=== PATIENT | female | born 1995 | race African-American/Black ===

== ENCOUNTER 2018-03-03 14:39 | Outpatient (CLI) | payer MEDICAID ==
[2018-03-03 15:11] LABS: APPEARANCE,URINE SLIGHTLY-CLOUDY; BILIRUBIN,URINE NEGATIVE (NEGATIVE); COLOR,URINE YELLOW; GLUCOSE, URINE NEGATIVE (NEGATIVE); KETONES,URINE NEGATIVE (NEGATIVE); LEUKOCYTE ESTERASE,URINE MODERATE (NEGATIVE); NITRITE,URINE NEGATIVE (NEGATIVE); PROTEIN,URINE NEGATIVE (NEGATIVE); URINE SPECIFIC GRAVITY 1.027
[2018-03-03 15:13] LABS: ABSOLUTE EOSINOPHILS # (AUTO) 0.1 10^3/uL (0.0-0.6); ABSOLUTE LYMPHOCYTES (AUTO) 1.5 10^3/uL (0.5-4.7); ABSOLUTE MONOCYTES (AUTO) 0.8 10^3/uL (0.1-1.4); ABSOLUTE NEUT (AUTO) 8.1 10^3/uL (1.7-8.2); BASOPHILS % (AUTO) 0.5 % (0-2); EOSINOPHILS % (AUTO) 0.9 % (0-6); HEMATOCRIT 38.7 % (36.0-47.0); HEMOGLOBIN 12.9 g/dL (12.0-15.5); LYMPHOCYTES % (AUTO) 14.1 % (13-45); MEAN CORPUSCULAR HEMOGLOBIN 30.6 pg (27.0-33.4); MEAN CORPUSCULAR HGB CONC 33.3 g/dL (32.0-36.0); MEAN CORPUSCULAR VOLUME 92 fl (80-97); PLATELET COUNT 211 10^3/uL (150-450); RED BLOOD COUNT 4.22 10^6/uL (3.72-5.28); RED CELL DISTRIBUTION WIDTH 14.5 % (11.5-14.0); SEGMENTED NEUTROPHILS % (AUTO) 76.5 % (42-78); TOTAL CELLS COUNTED % (AUTO) 100 %; WHITE BLOOD COUNT 10.5 10^3/uL (4.0-10.5)
[2018-03-03 15:33] LABS: ALANINE AMINOTRANSFERASE 20 U/L (9-52); ALBUMIN 3.6 g/dL (3.5-5.0); ALKALINE PHOSPHATASE 177 U/L (38-126); ANION GAP 10 (5-19); ASPARTATE AMINO TRANSFERASE 18 U/L (14-36); BILIRUBIN,DIRECT 0.1 mg/dL (0.0-0.4); BILIRUBIN,TOTAL 0.9 mg/dL (0.2-1.3); BLOOD UREA NITROGEN 8 mg/dL (7-20); CARBON DIOXIDE 24 mmol/L (22-30); CHLORIDE 106 mmol/L (98-107); GLUCOSE 73 mg/dL (75-110); LDH 361 U/L (313-618); SODIUM 139.5 mmol/L (137-145); TOTAL PROTEIN 6.7 g/dL (6.3-8.2)
[2018-03-03 15:47] LABS: URINE CREATININE 184.7 mg/dL (16-327); URINE PROTEIN 5.9 mg/dL (<12)
[2018-03-03 15:49] LABS: URINE AMPHETAMINES SCREEN NEGATIVE; URINE BARBITURATES SCREEN NEGATIVE; URINE BENZODIAZEPINES SCREEN NEGATIVE; URINE COCAINE SCREEN NEGATIVE; URINE MARIJUANA (THC) SCREEN NEGATIVE; URINE METHADONE SCREEN NEGATIVE; URINE PHENCYCLIDINE SCREEN NEGATIVE
--- NOTE | 2018-03-03 15:53 | Non Stress Test Report ---
Non Stress Test Datetime Report Generated by CPN: 03/03/2018 15:53 INDICATION Indication for Study: Ordered by Provider Indication for Study (NST) Other: Labor Check MONITORING Monitor Explained: Monitor Explained; Test Explained; Patient Verbalized Understanding Time on Monitor: 03/03/2018 14:55 Time off Monitor: 03/03/2018 15:37 NST Duration: 42 NST INTERVENTIONS NST Interventions: PO Hydration BABY A: [id number] BABY A Movement : Present Contraction Frequency : 8-9 FHR Baseline : 140 Accelerations : 15X15 Decelerations : None Variability : Moderate 6-25bpm NST Review and Verified By : A Chan RN NST Results: Reactive NST REPORT Report Trigger: Send Report
== END 2018-03-03 16:05 | disposition home or self-care (01) ==
LOC: LC 14:39
PROVIDERS: ATTEND Student in an Organized Health Care Education/Training Program
PROC: 4A1HXCZ Monitoring of Products of Conception, Cardiac Rate, External Approach (ICD-10-PCS; principal; 2018-03-03)
DX: O13.3 Gestational [pregnancy-induced] hypertension without significant proteinuria, third trimester (principal); Z3A.40 40 weeks gestation of pregnancy
CPT/HCPCS: 36415; 59025; 80053; 80307; 81001; 82570; 83615; 84156; 84550; 85025

== ENCOUNTER 2018-03-04 09:39 | Inpatient (IN) | payer MEDICAID ==
[2018-03-04] MEDS ORDERED: RINGERS SOLUTION,LACTATED 1,000 ML IV ONE (10:32)
[2018-03-04] MEDS ORDERED: PENICILLIN G POTASSIUM 5,000,000 UNIT in DEXTROSE 5%-WATER 100 ML IV ONE (10:32)
[2018-03-04] MEDS ORDERED: PENICILLIN G-K 5 MILLION UNIT VIAL ONE ×2 (10:32→14:15)
--- NOTE | 2018-03-04 10:42 | Admission Physical ---
Datetime Report Generated by CPN: 03/04/2018 10:42 CURRENT ADMISSION Hx Assessment: The History has been Reviewed and is Current Chief Complaint: Uterine Contractions Indication for Induction: Not Applicable Admit Impression : Term, Intrauterine ; Active Labor; Intact Membranes Admit Plan: Admit to Unit; Initiate Labor Protocol ALLERGIES Medication Allergies: No Medication Allergies: No Known Allergies (03/03/2018) Latex: No Latex Allergies Food Allergies: Seafood Environmental Allergies: N/A OBSTETRICAL HISTORY EDC: 03/01/2018 00:00 : 2 Para: 1 Term: 0 : 1 SAB: 0 IAB: 0 Ectopic: 0 Livin Cesareans: 0 VBACs: 0 Multiple Births: 0 Gestational Diabetes: No Rh Sensitization: No Incompetent Cervix: No FREEDOM: No Infertility: No ART Treatment: No Uterine Anomaly: No IUGR: No Hx Previous C/S: No Macrosomia: No Hx Loss/Stillborn: No PIH: No Hx : No Placenta Previa/Abruption: No Depression/PP Depression: Yes PTL/PROM: No Post Hemorrhage: No Current Procedures: Ultrasound; NST Obstetrical History Comments: G1 - Depression G2 - current SEE RECORDS Alcohol: No Marijuana : No Cocaine: No Other Illicit Drugs: No Cigarettes: Never Smoker. [id number] MEDICAL HISTORY Diabetes: No Blood Transfusion: No Pulmonary Disease (Asthma, TB): Yes Breast Disease: No Hypertension: No Exit Booth Agent Surgery: No Heart Disease: No Hosp/Surgery: No Autoimmune Disorder: No Anesthetic Complications: No Kidney Disease: No Abnormal Pap Smear: No Neuro/Epilepsy: No Psychiatric Disorders: No Other Medical Diseases: No Hepatitis/Liver Disease: No Significant Family History: No Varicosities/Phlebitis: No Trauma/Violence : No Thyroid Dysfunction: No Medical History Comments: Asthma hx per health department records INFECTIOUS HISTORY Gonorrhea: No Genital Herpes: No Chlamydia: No Tuberculosis: No Syphilis: No Hepatitis: No HIV/AIDS Exposure: No Rash or Viral Illness: No HPV: No PHYSICAL EXAM General: Normal HEENT: Normal Neurologic: Normal Thyroid: Deferred Heart: Normal Lungs: Normal Breast: Normal Back: Normal Abdomen: Normal Genitourinary Exam: Normal Extremities: Normal DTRs: Normal Pelvic Type: Adequate Physical Exam Comments: pelvis proven 5 lbs 5 oz, efw: 7lbs 10z on 03/03/18 Vital Signs: Reviewed VAGINAL EXAM Dilatation: 3 Contraction Comments: 2-3 MEMBRANES Membranes: Intact FETUS A EGA: 40.3 Monitoring: External US FHR- Baseline: 135 Variability: Moderate 6-25bpm Accelerations: 15X15 Decelerations: None FHR Category: Category I Presentation: Vertex Admit Comment: Active labor @ 40. 3 GBS +, pcn may have epidural prn first prengancy complicated by @ 32 weeks. Denies complications during this NKDA PLANS FOR LABOR AND DELIVERY Labor and Delivery: None Pain Management: Natural Feeding Preference: Breast Circumcision: Yes INFORMED CONSENT Assignment: Jose A Austin MD Signature: with User ID: [email or web address] : with User ID: [email or web address]
[2018-03-04 10:46] LABS: ABSOLUTE BASOPHILS # (AUTO) 0.1 10^3/uL (0.0-0.2); ABSOLUTE EOSINOPHILS # (AUTO) 0.1 10^3/uL (0.0-0.6); ABSOLUTE LYMPHOCYTES (AUTO) 1.6 10^3/uL (0.5-4.7); ABSOLUTE MONOCYTES (AUTO) 0.9 10^3/uL (0.1-1.4); ABSOLUTE NEUT (AUTO) 9.8 10^3/uL (1.7-8.2); BASOPHILS % (AUTO) 0.5 % (0-2); EOSINOPHILS % (AUTO) 1.1 % (0-6); HEMOGLOBIN 12.9 g/dL (12.0-15.5); LYMPHOCYTES % (AUTO) 12.8 % (13-45); MEAN CORPUSCULAR VOLUME 91 fl (80-97); MONOCYTES % (AUTO) 7.5 % (3-13); PLATELET COUNT 209 10^3/uL (150-450); RED BLOOD COUNT 4.17 10^6/uL (3.72-5.28); SEGMENTED NEUTROPHILS % (AUTO) 78.1 % (42-78); TOTAL CELLS COUNTED % (AUTO) 100 %; WHITE BLOOD COUNT 12.5 10^3/uL (4.0-10.5)
[2018-03-04 11:01] LABS: URINE AMPHETAMINES SCREEN NEGATIVE; URINE BARBITURATES SCREEN NEGATIVE; URINE BENZODIAZEPINES SCREEN NEGATIVE; URINE COCAINE SCREEN NEGATIVE; URINE MARIJUANA (THC) SCREEN NEGATIVE; URINE METHADONE SCREEN NEGATIVE; URINE PHENCYCLIDINE SCREEN NEGATIVE
[2018-03-04 11:11] LABS: APPEARANCE,URINE SLIGHTLY-CLOUDY; BILIRUBIN,URINE NEGATIVE (NEGATIVE); COLOR,URINE YELLOW; GLUCOSE, URINE NEGATIVE (NEGATIVE); KETONES,URINE TRACE mg/dL (NEGATIVE); LEUKOCYTE ESTERASE,URINE SMALL (NEGATIVE); NITRITE,URINE NEGATIVE (NEGATIVE); PROTEIN,URINE NEGATIVE (NEGATIVE); URINE SPECIFIC GRAVITY 1.016
--- NOTE | 2018-03-04 12:44 | L&D Progress Notes ---
PROGRESS NOTES Datetime Report Generated by CPN: 03/04/2018 12:44 PROGRESS NOTE Impression: Normal Progression of Labor Procedures: Sterile Vag Exam Plan: Continue Present Management Informed Consent Obtained: Vaginal Delivery Vital Signs : Reviewed Comment: pt feeling ctx, uncomfortable would like epidural May have epidural Anticpate VAGINAL EXAM Dilatation: 6 Dilatation: 3 Effacement: 90 Station: 0 Contractions: 2-3 Contractions: 2-3 MEMBRANES Membranes: Intact FETUS A FHR - Baseline: 130 Monitoring: External US Variability: Moderate 6-25bpm Accelerations: 15X15 Decelerations: Variable FHR Category: Category II Presentation: Vertex SIGNATURE SIGNATURE: [id number] SIGNATURE: ,[id number];,[id number] SIGNATURE: ,[id number] Assignment: Jose A Austin MD Signature: with User ID: [email or web address] : with User ID: [email or web address]
[2018-03-04] MEDS ORDERED: FENTANYL/BUPIVACAINE/NS/PF 300 MCG/150 ML RTUINJ EPI ONE (12:52)
[2018-03-04] MEDS ORDERED: EPHEDRINE SULFATE INJ 50 MG/1 ML AMPULE ONE (12:52)
[2018-03-04] MEDS ORDERED: BUPIVACAINE HCL 0.25 % INJ/PF (2.5 MG/1 ML) 30 ML VIAL ONE (12:52)
[2018-03-04] MEDS ORDERED: OXYTOCIN/NORMAL SALINE 20 UNIT/1,000 ML RTUINJ ONE (12:53)
[2018-03-04] MEDS ORDERED: LIDOCAINE 1% INJ-PF (10 MG/ML) 30 ML SDV ONE (12:53)
[2018-03-04] MEDS ORDERED: MISOPROSTOL 0.2 MG TABLET ONE (12:53)
[2018-03-04] MEDS ORDERED: PENICILLIN G POTASSIUM 2,500,000 UNIT in DEXTROSE 5%-WATER 50 ML IV SCH (14:33)
[2018-03-04] MEDS ORDERED: MEASLES,MUMPS&RUBELLA VACC/PF 0.5 ML VIAL SUBCUT PRN (15:10)
[2018-03-04] MEDS ORDERED: OXYTOCIN/NORMAL SALINE 20 UNIT/1,000 ML RTUINJ IV PRN (15:10)
[2018-03-04] MEDS ORDERED: ZOLPIDEM TARTRATE 5 MG TABLET PO PRN (15:10)
[2018-03-04] MEDS ORDERED: ACETAMINOPHEN WITH CODEINE #3 TABLET PO PRN ×2 (15:10)
[2018-03-04] MEDS ORDERED: DIPH/PERTUSS(ACELL)/TETANUS VAC/PF 0.5 ML SYR (>=10YO) IM PRN (15:10)
[2018-03-04] MEDS ORDERED: BENZOCAINE/MENTHOL AEROSOL SPRAY 56 ML TOP PRN (15:10)
[2018-03-04] MEDS ORDERED: DIBUCAINE 1% OINTMENT 28 GM TP PRN (15:10)
--- NOTE | 2018-03-04 16:47 | Warning Signs in Babies ---
VOD Warning Signs Datetime Report Generated by [facility]: 03/04/2018 16:47 VOD#608 -Warning Signs in Babies: Viewed with Parent(s)/Family (03/04/2018 16:46:PETAR [place])
[2018-03-04] MEDS: FERROUS SULFATE 325 MG TABLET PO SCH (19:48)
[2018-03-04] MEDS: DOCUSATE SODIUM 100 MG CAPSULE PO SCH (19:48)
[2018-03-04] MEDS: IBUPROFEN 800 MG TABLET PO SCH (22:07)
[2018-03-05] MEDS: IBUPROFEN 800 MG TABLET PO SCH ×3 (05:28→21:52)
[2018-03-05 07:47] LABS: HEMATOCRIT 37.7 % (36.0-47.0); HEMOGLOBIN 12.5 g/dL (12.0-15.5); MEAN CORPUSCULAR HEMOGLOBIN 30.8 pg (27.0-33.4); MEAN CORPUSCULAR HGB CONC 33.2 g/dL (32.0-36.0); MEAN CORPUSCULAR VOLUME 93 fl (80-97); PLATELET COUNT 211 10^3/uL (150-450); RED BLOOD COUNT 4.07 10^6/uL (3.72-5.28); RED CELL DISTRIBUTION WIDTH 14.3 % (11.5-14.0); WHITE BLOOD COUNT 13.3 10^3/uL (4.0-10.5)
[2018-03-05] MEDS: SENNOSIDES/DOCUSATE 8.6-50 MG 1 EACH TABLET PO SCH (09:48)
[2018-03-05] MEDS: DOCUSATE SODIUM 100 MG CAPSULE PO SCH ×2 (09:48→17:26)
[2018-03-05] MEDS: PRENATAL VITAMIN W DHA CAPSULE PO SCH (09:49)
[2018-03-05] MEDS: FERROUS SULFATE 325 MG TABLET PO SCH ×2 (09:49→17:27)
--- NOTE | 2018-03-05 11:11 | PDOC PROGRESS REPORT ---
Subjective-OB Progress Note for:: 03/05/18 Subjective: s/p day #1 denies concern, lochia is stable, pain well controlled, voiding without difficulty. Physical Exam (OB) Vital Signs: Temp Pulse Resp BP Pulse Ox 97.8 F 76 16 114/74 100 03/05/18 07:33 03/05/18 07:33 03/05/18 07:33 03/05/18 07:33 03/05/18 07:33 Intake & Output 03/04/18 03/05/18 03/06/18 06:59 06:59 06:59 Weight 74.3 kg - PIH/Pre-Eclampsia Clonus: Negative Headache: Absent Epigastric Pain: No Visual Changes: No - Lochia Lochia Amount: Scant < 10 ml Lochia Color: Rubra/Red - Abdomen Description: Soft, Round Hernia Present: No Fundal Description: Firm, Midline Fundal Height: u/u - u/2 Objective-Diagnostic Laboratory: 03/05/18 07:13 03/04/18 03/04/18 03/05/18 09:45 10:29 07:13 WBC 13.3 H RBC 4.07 Hgb 12.5 Hct 37.7 MCV 93 MCH 30.8 MCHC 33.2 RDW 14.3 H Plt Count 211 Urine Color YELLOW Urine Appearance SLIGHTLY-CLOUDY Urine pH 7.0 Ur Specific [place] 1.016 Urine Protein NEGATIVE Urine Glucose (UA) NEGATIVE Urine Ketones TRACE H Urine Blood MODERATE H Urine Nitrite NEGATIVE Ur Leukocyte Esterase SMALL H Blood Type A POSITIVE Antibody Screen NEGATIVE Assessment and Plan(PN) - Assessment and Plan (1) Vaginal delivery Is this a current diagnosis for this admission?: Yes Plan: routine pp care (2) Group beta Strep positive Is this a current diagnosis for this admission?: Yes Plan: monitor - Time Spent with Patient Time with patient: Less than 15 minutes Critical Time spent with patient: Less than 15 minutes Medications reviewed and adjusted accordingly: Yes - Disposition Anticipated Discharge: Home Within: within 24 hours
[2018-03-06] MEDS: IBUPROFEN 800 MG TABLET PO SCH (06:02)
[2018-03-06 08:10] VITALS: BP 113/67
[2018-03-06] MEDS: SENNOSIDES/DOCUSATE 8.6-50 MG 1 EACH TABLET PO SCH (09:06)
[2018-03-06] MEDS: FERROUS SULFATE 325 MG TABLET PO SCH (09:06)
[2018-03-06] MEDS: DOCUSATE SODIUM 100 MG CAPSULE PO SCH (09:06)
[2018-03-06] MEDS: PRENATAL VITAMIN W DHA CAPSULE PO SCH (09:06)
--- NOTE | 2018-03-06 11:21 | PDOC PROGRESS REPORT ---
Subjective-OB Progress Note for:: 03/06/18 Subjective: Doing well, no c/o, breast feeding, voiding, eating well, mod lochia, ready to go home Physical Exam (OB) Vital Signs: Temp Pulse Resp BP Pulse Ox 98.2 F 93 16 113/67 100 03/06/18 07:44 03/06/18 07:44 03/06/18 07:44 03/06/18 07:44 03/06/18 07:44 Intake & Output 03/05/18 03/06/18 03/07/18 06:59 06:59 06:59 Weight 74.3 kg - PIH/Pre-Eclampsia DTR's: 1 + Clonus: Negative Headache: Absent Epigastric Pain: No Visual Changes: No - Lochia Lochia Amount: Scant < 10 ml Lochia Color: Rubra/Red - Abdomen Description: Tender, Soft Hernia Present: No Fundal Description: Firm Fundal Height: u/3 - u/4 Objective-Diagnostic Laboratory: 03/05/18 07:13 Assessment and Plan(PN) - Assessment and Plan (1) Vaginal delivery Is this a current diagnosis for this admission?: Yes (2) Group beta Strep positive Is this a current diagnosis for this admission?: Yes - Time Spent with Patient Time with patient: Less than 15 minutes Medications reviewed and adjusted accordingly: Yes - Disposition Anticipated Discharge: Home Within: Other - home today
--- NOTE | 2018-03-06 11:25 | PDOC DISCHARGE SUMMARY ---
Final Diagnosis Discharge Date: 03/06/18 - Final Diagnosis (1) Vaginal delivery Is this a current diagnosis for this admission?: Yes (2) Group beta Strep positive Is this a current diagnosis for this admission?: Yes Discharge Data - Discharge Medication Prescriptions: Ibuprofen [Motrin 800 mg Tablet] 800 mg PO Q8 #60 tablet Home Medications: Vit,Calc76/Iron/Folic [Pnv 29-1 Tablet] 1 each PO DAILY 03/03/18 Ibuprofen [Motrin 800 mg Tablet] 800 mg PO Q8 #60 tablet 03/06/18 Gestational Age: 40.3 Reason(s) for Admission: Onset of Labor, Group B Strep Positive Procedures: NST, Ultrasound Intrapartum Procedure(s): Spontaneous Vaginal Delivery - [place] Data Baby 1 Male at 1 minute: 9 at 5 minutes: 9 Weight: 2.75 kg Home with Mother: Yes Complications: No - Diagnosis Test Laboratory: Temp Pulse Resp BP Pulse Ox 98.2 F 93 16 113/67 100 03/06/18 07:44 03/06/18 07:44 03/06/18 07:44 03/06/18 07:44 03/06/18 07:44 03/04/18 03/04/18 03/05/18 09:45 10:24 07:13 RBC 4.17 4.07 Hgb 12.9 12.5 Hct 38.0 37.7 Urine Opiates Screen NEGATIVE - Discharge information/Instructions Discharge Activity: Activity As Tolerated, No Lifting Over 10 Pounds, No Lifting /Push/Pulling, Pelvic Rest Discharge Diet: As Tolerated, Regular Disposition: HOME, SELF-CARE Follow up with: [facility] in: 4, Weeks
--- NOTE | 2018-03-25 13:49 | Delivery Summary ---
Del Sum A-C Datetime Report Generated by CPN: 03/25/2018 13:48 DELIVERY PERSONNEL DELIVERY PERSONNEL: [id number] Delivery Doctor:: Vikki Odell CNM Labor and Delivery Nurse:: Liza Pacheco, RNC Labor and Delivery Nurse:: Sincere Nelson weight caller Nurse:: Liza Pacheco RNC Nursery Nurse:: Milla Jarrett RNC Nursery Nurse:: Nancy Chris, RN Nursery Nurse:: Nancy Chris, RN Principal Librarian/END PACKER: Verna Guerrero, END PACKER II MATERNAL INFORMATION Delivery Anesthesia: Epidural Delivery Anesthesia: Epidural Medications After Delivery: Pitocin Bolus-Please Comment Medications After Delivery: Pitocin Bolus-Please Comment; Pitocin Drip 20 Units/1000ml NSS Maternal Complications: None Provider Comments: of viable male , head delivered, loose nuchal reduced, shoulders and body delivered without difficulty, infant with spontaneous cry and respirations, to maternal abdomen, cord clamped X2 after 2 min delay, infant cut free by pts , spontaneous delivery of placenta, appears intact, 3VC, hemostasis acheived with external fundal massage and IV Pitocin, vagina and perineum inspected, no lacerations noted. mother and infant in stable condition, routine pp care LABOR SUMMARY EDC: 03/01/2018 00:00 No. Babies in Womb: 1 Attempted: No Labor Anesthesia: Epidural LABOR INFORMATION Reason for Induction: Not Applicable Onset of Labor: 03/04/2018 12:39 Oxytocin: N/A Group B Beta Strep: Positive Antibiotics # of Doses: 1 Antibiotics Time of Last Dose: 1045 Name of Antibiotic Given: PCN Steroids Given: None Reason Steroids Not Administered: Not Applicable MEMBRANES Membranes Rupture Method: Spontaneous Rupture of Membranes: 03/04/2018 13:00 Length of Rupture (hr): 1.68 Amniotic Fluid Color: Clear Amniotic Fluid Amount: Small Amniotic Fluid Odor: None STAGES OF LABOR Stage 3 hr: 0 Stage 3 min: 6 Total Time in Labor hr: 2 Total Time in Labor min: 8 VAGINAL DELIVERY Episiotomy: None Laceration #1: None Laceration Extension #1: N/A Laceration Repair: Not Applicable Laceration Repair Note: none CSECTION DELIVERY CSection Incision: N/A BABY A INFORMATION Delivery Date/Time: 03/04/2018 14:41 Method of Delivery: Vaginal Born in Route : No : N/A Forceps: N/A Vacuum Extraction: N/A Shoulder Dystocia : No PRESENTATION/POSITION BABY A Presentation: Cephalic Cephalic Presentation: Vertex Vertex Position: Left Occipital Anterior Breech Presentation: N/A PLACENTA INFORMATION BABY A Placenta Delivery Time : 03/04/2018 14:47 Placenta Method of Delivery: Spontaneous Placenta Status: Delivered SCORES BABY A Heart Rate 1 min: >100 bpm Resp Effort 1 min: Good Cry Reflex Irritability 1 min: Cough or Sneeze or Pulls Away Muscle Tone 1 min: Active Motion Color 1 min: Body [place], Extremities Blue Resuscitation Effort 1 min: Tactile Stimulation SCORE 1 MIN: 9 Heart Rate 5 min: >100 bpm Resp Effort 5 min: Good Cry Reflex Irritability 5 min: Cough or Sneeze or Pulls Away Muscle Tone 5 min: Active Motion Color 5 min: Body [place], Extremities Blue Resuscitation Effort 5 min: N/A SCORE 5 MIN: 9 INFORMATION BABY A Gestational Age at Delivery: 40.3 Gestational Status: Full Term- 39- 40.6 Weeks Outcome : Liveborn Condition : Stable Infant Sex: Male IDENTIFICATION BABY A Infant Verification Date/Time: 03/04/2018 15:10 ID Band Number: [id number] Mother's Name Verified: Yes Infant RN Verifying : R Leonid RN, K Junior RNC WEIGHT/LENGTH BABY A Infant Birthweight (gm): 2750 Infant Weight (lb): 6 Infant Weight (oz): 1 Infant Length (in): 19.75 Infant Length (cm): 50.17 CORD INFORMATION BABY A No. Cord Vessels: 3 Nuchal Cord : Around Neck x1, Loose Cord Blood Taken: Yes-For Storage (Mom's Blood type +) Suction: None ASSESSMENT BABY A Infant Complications: Meconium Physical Findings at Delivery: Molding of the Head Respirations: Appears Normal Skin to Skin: Yes Translator And Interpreter/ALS Called : No Infant Care By: JuliannaRamses Aries, RN/D. Kolby RNC Transferred To: Remains with Mother BABY B INFORMATION : N/A SIGNATURES Assignment: Jose A Austin MD Signature: with User ID: [email or web address] : with User ID: [email or web address]
== END 2018-03-06 12:50 | disposition home or self-care (01) | DRG 775 ==
LOC: LC 09:39 → LR 10:41 → 2S 17:00
PROVIDERS: ADMIT Obstetrics & Gynecology Gynecology; ATTEND Obstetrics & Gynecology Gynecology
PROC: 10E0XZZ Delivery of Products of Conception, External Approach (ICD-10-PCS; principal; 2018-03-04)
PROC: 4A1HXCZ Monitoring of Products of Conception, Cardiac Rate, External Approach (ICD-10-PCS; 2018-03-04)
DX: O99.824 Streptococcus B carrier state complicating childbirth (principal); O77.0 Labor and delivery complicated by meconium in amniotic fluid; O69.81X0 Labor and delivery complicated by cord around neck, without compression, not applicable or unspecified; Z3A.40 40 weeks gestation of pregnancy; Z37.0 Single live birth
CPT/HCPCS: 36415; 80307; 81005; 85025; 85027; 86850; 86900; 86901; 94760; J2540; J2590; J3010; J3490

== ENCOUNTER 2018-05-21 09:56 | Day surgery (SDC) | payer MEDICAID ==
[2018-05-18 11:29] LABS: APPEARANCE,URINE CLEAR; BILIRUBIN,URINE NEGATIVE (NEGATIVE); COLOR,URINE YELLOW; GLUCOSE, URINE NEGATIVE (NEGATIVE); KETONES,URINE NEGATIVE (NEGATIVE); LEUKOCYTE ESTERASE,URINE NEGATIVE (NEGATIVE); NITRITE,URINE NEGATIVE (NEGATIVE); PROTEIN,URINE NEGATIVE (NEGATIVE)
[2018-05-18 11:32] LABS: HEMATOCRIT 41.1 % (36.0-47.0); HEMOGLOBIN 13.9 g/dL (12.0-15.5); MEAN CORPUSCULAR HEMOGLOBIN 31.2 pg (27.0-33.4); MEAN CORPUSCULAR HGB CONC 33.8 g/dL (32.0-36.0); MEAN CORPUSCULAR VOLUME 92 fl (80-97); PLATELET COUNT 335 10^3/uL (150-450); RED BLOOD COUNT 4.45 10^6/uL (3.72-5.28); RED CELL DISTRIBUTION WIDTH 13.7 % (11.5-14.0)
[2018-05-21] MEDS ORDERED: FENTANYL CITRATE INJ/PF 100 MCG/2 ML AMPUL ONE (10:21)
[2018-05-21] MEDS ORDERED: HYDROMORPHONE HCL INJ/PF 2 MG/ML AMPULE ONE (10:22)
[2018-05-21] MEDS ORDERED: MIDAZOLAM 2 MG/2 ML INJ ONE (10:22)
[2018-05-21] MEDS ORDERED: ONDANSETRON HCL INJ/PF 4 MG/2 ML SDV ONE (10:22)
[2018-05-21] MEDS ORDERED: DEXAMETHASONE SOD PHOSPHATE INJ 4 MG/1 ML VIAL ONE (10:22)
[2018-05-21] MEDS ORDERED: PROPOFOL INJ 200 MG/20 ML VIAL IV ONE (10:22)
[2018-05-21] MEDS ORDERED: MEPERIDINE HCL/PF INJ 25 MG/1 ML DISP.SYRIN IV PRN (10:53)
[2018-05-21] MEDS ORDERED: PROMETHAZINE HCL INJ 25 MG/1 ML VIAL IV PRN ×2 (10:53)
[2018-05-21] MEDS ORDERED: FENTANYL CITRATE INJ/PF 100 MCG/2 ML AMPUL IV PRN ×3 (10:53)
[2018-05-21] MEDS ORDERED: DIPHENHYDRAMINE HCL 50 MG/ML VIAL IV PRN (10:53)
[2018-05-21] MEDS ORDERED: MORPHINE SULFATE 10 MG/ML INJ IV PRN (10:53)
[2018-05-21] MEDS ORDERED: OXYCODONE-ACETAMINOPHEN 5-325 MG TABLET PO PRN ×4 (10:53→11:53)
[2018-05-21] MEDS ORDERED: RINGERS SOLUTION,LACTATED 1,000 ML IV PRN (11:49)
--- NOTE | 2018-05-21 11:50 | OPERATIVE REPORT E ---
Operative Report NAME: RAUL JOHNSON : 1995 AGE: 23Y DATE OF SURGERY: 05/21/2018 ROOM: PREOPERATIVE DIAGNOSIS: Undesired fertility. POSTOPERATIVE DIAGNOSIS: Undesired fertility. OPERATION: Laparoscopic tubal cauterization. SURGEON: JOSE BORJA M.D. PAR[employer]LE[employer] COMPUTING SOFTWARE ENGINEER: Cecile Barrera, photographer assistant surgical orderly ANESTHESIA: Dr. Fabricio Albright with general. FINDINGS: Normal uterus, tubes, and ovaries. COMPLICATIONS: None. ESTIMATED BLOOD LOSS: 10 mL. SPECIMENS REMOVED: None. PROCEDURE IN DETAIL: The patient was taken to the operating room, prepared, draped in a normal sterile fashion in a dorsal lithotomy position. Under sterile conditions an in-and-out cath was performed of approximately 10 mL of clear urine. A sterile speculum was then placed into the vagina and the cervix was prepped with Betadine. A Hulka clamp was placed through the cervical os for uterine manipulation. The speculum were removed. Gloves were changed and attention was turned to the upper portion of the case. An umbilical skin incision was made to accommodate a 5-mm port, which was placed with [employer] procedure into the peritoneal cavity. The peritoneal cavity was then insufflated with approximately 2 liter of CO2 gas to a pressure of 15 mmHg. The patient was then placed in Trendelenburg and under direct visualization a 5-mm port was placed in the left lower quadrant. Through this port, a Kleppinger was then introduced and beginning with the left fallopian tube, the left fallopian tube was fully cauterized of approximately 3.5 cm. We then repeated this on the right fallopian tube without difficulty. Again, a good 3.5-cm were coagulated using the Kleppinger. The abdomen was then inspected and found to be hemostatic. The Kleppinger was removed and the left lower quadrant port was removed under direct visualization with good hemostasis. The patient was taken out of Trendelenburg. Camera was removed and the patient's abdomen was deflated through the umbilical trocar, which was then removed. The skin was closed at both sites using 4-0 Vicryl. The patient tolerated the procedure well. Sponge, lap, and needle counts were correct x2. The patient was taken to recovery in stable condition. DICTATING PHYSICIAN: JOSE BORJA M.D. [id number] PHY#: [id number] ID: [id number] JOB#: [id number] ACCT: [id number] cc:JOSE BORJA M.D. >
[2018-05-21] MEDS ORDERED: MORPHINE SULFATE 10 MG/ML INJ IM PRN (11:51)
[2018-05-21] MEDS ORDERED: IBUPROFEN 800 MG TABLET PO PRN (11:52)
[2018-05-21 13:46] VITALS: BP 121/60
[2018-05-21] MEDS ORDERED: SUCCINYLCHOLINE CHLORIDE INJ 200 MG/10 ML VIAL ONE (15:17)
== END 2018-05-21 13:50 | disposition home or self-care (01) ==
LOC: OROUT 09:56
PROVIDERS: ATTEND Obstetrics & Gynecology
DX: Z30.2 Encounter for sterilization (principal); J45.909 Unspecified asthma, uncomplicated
CPT/HCPCS: 36415; 85027; 81005; 81025; 58670; J2250; J1100; J3010; J1170; J2550; J0330; J2405; J2704; 851

== ENCOUNTER 2020-08-26 09:02 | Emergency (ER) | payer MEDICAID ==
--- NOTE | 2020-08-26 10:15 | RADIOLOGY REPORT (SQ) ---
EXAM DESCRIPTION: HAND RIGHT 3 VIEWS IMAGES COMPLETED DATE/TIME: 08/26/2020 9:52 am REASON FOR STUDY: possible foriegn body COMPARISON: None. EXAM PARAMETERS: NUMBER OF VIEWS: Three views. TECHNIQUE: AP, lateral and oblique radiographic images acquired of the right hand. LIMITATIONS: None. FINDINGS: MINERALIZATION: Normal. BONES: No acute fracture or dislocation. No worrisome bone lesions. JOINTS: No effusions. SOFT TISSUES: Faintly radiopaque glass shard along the ulnar aspect of the pinky finger at the level of the midshaft proximal phalanx marked with an arrow. Mild pinky finger soft tissue swelling OTHER: No other significant finding. IMPRESSION: Faintly radiopaque glass shard along the ulnar aspect of the pinky finger at the level o f the midshaft proximal phalanx marked with an arrow. TECHNICAL DOCUMENTATION: JOB ID: [id number] 2010 [employer]- All Rights Reserved Reading location - IP/workstation name: [email or web address]
[2020-08-26] MEDS ORDERED: LIDOCAINE 2% INJ (20 MG/ML) 20 ML MDV INJ ONE (11:30)
--- NOTE | 2020-08-26 11:31 | ER Document Report ---
ED General - General Chief Complaint: Foreign Body Stated Complaint: HAND PAIN Time Seen by Provider: 08/26/20 10:08 Primary Care Provider: RAFA CARDONA MD [Primary Care Provider] - Follow up as needed Mode of Arrival: Ambulatory Information source: Patient Notes: 25-year-old woman presenting to the emergency department with a complaint that she has a foreign body in the fifth finger right hand. Apparently she has had some discomfort and pain for over a month. She states that the pain has worsened and she is now got a focal area of swelling she states that she may have a piece of glass in the finger. Patient states that she was washing dishes, cup broke and thinks that she may have gotten the glass embedded in her finger at that time. This occurred greater than 1 month ago. TRAVEL OUTSIDE OF THE [place] IN LAST 30 DAYS: No - Related Data Allergies/Adverse Reactions: seafood Allergy (Uncoded 08/26/20 09:34) Past Medical History - Social History Smoking Status: Former Smoker Frequency of alcohol use: Occasional Drug Abuse: None Family History: Reviewed & Not Pertinent Patient has homicidal ideation: No - Past Medical History Cardiac Medical History: Denies: Hx Coronary Artery Disease, Hx Heart Attack, Hx Hypertension Pulmonary Medical History: Reports: Hx Asthma - albuterol prn Denies: Hx Bronchitis, Hx COPD, Hx Pneumonia Neurological Medical History: Denies: Hx Cerebrovascular Accident, Hx Seizures Musculoskeletal Medical History: Denies Hx Arthritis Past Surgical History: Reports: Hx Tubal Ligation - Immunizations Hx Diphtheria, Pertussis, Tetanus Vaccination: Yes Review of Systems - Review of Systems Notes: Constitutional: Negative for fever. HENT: Negative for sore throat. Eyes: Negative for visual changes. Cardiovascular: Negative for chest pain. Respiratory: Negative for shortness of breath. Gastrointestinal: Negative for abdominal pain, vomiting or diarrhea. Genitourinary: Negative for dysuria. Musculoskeletal: See HPI Skin: Negative for rash. Neurological: Negative for headaches, weakness or numbness. 10 point ROS negative except as marked above and in HPI. Physical Exam - Vital signs Vitals: Temp Pulse Resp BP Pulse Ox 98.6 F 89 14 137/74 H 98 08/26/20 09:13 08/26/20 09:13 08/26/20 09:13 08/26/20 09:13 08/26/20 09:13 - Notes Notes: PHYSICAL EXAMINATION: Physical Exam: General: Well-nourished well-developed in no acute distress HEENT: NC/AT, pupils equal round and reactive to light, MM moist,nares clear, oropharynx clear, airway patent Neck: supple, no adenopathy, no masses. Good range of motion Lungs: clear, no wheezing, no rales no rhonchi CVS: Regular rate and rhythm no murmur gallop or rub Abdomen: Soft, active, nontender, no masses, no hepatosplenomegaly Ext: Right fifth finger with a raised area on the lateral aspect of the finger with a pointed center. Tender to touch Neuro: Alert and responsive, moving all 4 extremities on command, cranial nerves intact, no focal findings Skin: Intact no open lesions, no rash PSYCH: Normal mood, normal affect. Course - Vital Signs Vital signs: Temp Pulse Resp BP Pulse Ox 98.6 F 81 19 112/77 100 08/26/20 15:39 08/26/20 15:39 08/26/20 15:39 08/26/20 15:39 08/26/20 15:39 - Diagnostic Test Radiology reviewed: Image reviewed, Reports reviewed Radiology results interpreted by me: 08/26/20 15:05 Hand X-Ray 08/26/20 09:28 IMPRESSION: Faintly radiopaque glass shard along the ulnar aspect of the pinky finger at the level of the midshaft proximal phalanx marked with an arrow. Procedures - Incision and Drainage 1445 Time completed: 14:45 Type: Simple Anesthetic type: 1% Lidocaine Blade size: 11 I&D procedure: Chlorprep applied Incision Method: Incision made by scalpel Notes: 08/26/20 15:09 Procedure was performed to remove the foreign body from the lateral aspect of the fifth finger. Lidocaine was injected locally, a #11 blade was used to make a tiny incision and a small sliver of glass was removed from the finger. 5-0 Vicryl sutures used to close the incision site. The patient tolerated the procedure well and neurovascularly is intact post procedure. Discharge - Discharge Clinical Impression: Foreign body of finger of right hand Qualifiers: Encounter type: initial encounter Qualified Code(s): S60.459A - Superficial foreign body of unspecified finger, initial encounter Condition: Good Disposition: HOME, SELF-CARE Instructions: Foreign Body ([facility]) Additional Instructions: You were seen in the emergency department today today with piece of glass in your right fifth finger. An incision was performed and a small piece of glass was removed from the finger. Suture 5-0 Vicryl was placed to close the incision site. Please take the antibiotic as prescribed. Please follow-up with your doctor as needed HOME CARE INSTRUCTIONS & INFORMATION: Thank you for choosing us for your medical needs. We hope you're satisfied with the care you received. After you leave, you must properly care for your problem and, at the same time, observe its progress. Any condition can change. Some illnesses can change rapidly over hours or days. If your condition worsens, return to the Emergency Department or see your physician promptly. ABOUT YOUR X-RAYS AND EKG'S: If you had an EKG or X-rays taken, they have been read by the Emergency Physician. The X-rays and EKG's will also be read by a Radiologist or Plug Saw Operator within 24 hours. If discrepancies are noted, you will be notified by telephone. Please be certain the ED has a correct telephone number & address where you can be reached. Also, realize that some fractures or abnormalities do not show up on initial X-rays. If your symptoms continue, see your physician. ABOUT YOUR LABORATORY TEST: If you had laboratory tests, the results have been reviewed by the Emergency Physician. Some test results (for example cultures) may not be available for several days. You will be contacted if any test result shows you need additional treatment. Please be certain the ED has a correct telephone number and address where you can be reached. ABOUT YOUR MEDICATIONS: You will receive instructions on how to take your medicine on the prescription label you receive. Additional information may be provided by the Pharmacy. If you have questions afterwards, call the ED for clarification or further instructions. Some prescribed medications may cause drowsiness. Do not perform tasks such as driving a car or operating machinery without consulting your Pharmacist. If you feel you need a refill of pain medication, your condition will need re-evaluation. Please do not call for a refill of any medication. ABOUT YOUR SIGNATURE: Signature of this document acknowledges to followin. Understanding that you received emergency treatment and that you may be released before al medical problems are known or treated. Please be certain the ED has a correct phone number & address where you can be reached. 2. Acknowledgement that you will arrange for follow-up care as recommended. 3. Authorization for the Emergency Physician to provide information to your follow-up Physician in order to maximize your care. AT ANY TIME, IF YOUR SYMPTOMS CHANGE SIGNIFICANTLY OR WORSEN OR YOU DEVELOP NEW SYMPTOMS, RETURN TO THE EMERGENCY DEPARTMENT IMMEDIATELY FOR RE-EVALUATION. OUR GOAL IS TO PROVIDE EXCELLENT MEDICAL CARE! WE HOPE THAT WE HAVE MET YOUR EXPECTATIONS DURING YOUR EMERGENCY DEPARTMENT VISIT AND THAT YOU FEEL YOU HAVE RECEIVED EXCELLENT CARE! Prescriptions: Cephalexin Monohydrate [Keflex 500 mg Capsule] 500 mg PO Q8 10 Days #21 capsule Referrals: RAFA CARDONA MD [Primary Care Provider] - Follow up as needed
[2020-08-26 15:40] VITALS: BP 112/77
== END 2020-08-26 15:40 | disposition home or self-care (01) ==
LOC: ER 09:02
DX: S60.456A Superficial foreign body of right little finger, initial encounter (principal); W45.8XXA Other foreign body or object entering through skin, initial encounter; J45.909 Unspecified asthma, uncomplicated; Z87.891 Personal history of nicotine dependence; Z91.013 Allergy to seafood
CPT/HCPCS: 99283; 73130; 10120; J3490